=== PATIENT | male | born 1990 | race Caucasian/White ===

== ENCOUNTER → 2019-05-12 | Outpatient (CLI) | payer OTHER ==
--- NOTE | 2019-05-13 07:10 | REP ---
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 The patient reports swelling or tightness feeling around the base of the neck bilaterally rule out first cervical rib mass. TECHNIQUE: Sagittal and axial T1- and T2-weighted scans are acquired in the usual fashion with and without fat saturation. Sequences include spin echo, turbo spin-echo, and STIR imaging sequences. The field of view was opened up on axial sequences to include the area of the uppermost cervical ribs and lung apices and supraclavicular soft tissues. MRI FINDINGS: There is straightening of the normal cervical lordosis. Cortical and medullary bone signal intensity are normal. Cervical cord is normal in coarse, caliber and signal intensity on T1- and T2-weighted scans. No disc protrusion or other cord compressive lesion is seen. Disc spaces are preserved in height and signal intensity. There is no evidence of a soft tissue mass at the level of the thoracic inlet. No abnormal signal intensity is seen in or along the course the first several cervical ribs. No brachial plexus mass is appreciated. No thyroid lesion or submandibular gland lesion is seen. No cervical adenopathy is appreciated. Parotid glands appear normal and symmetric although they are not completely included in the field of view. The retropharyngeal soft tissues are unremarkable. IMPRESSION: Straightening of the normal cervical lordosis. Otherwise negative cervical spine MRI. The field of view was enlarged on the axial images and no evidence of brachial plexus supraclavicular or upper thoracic rib lesion is appreciated. Electronically Signed by Vidal Baker MD 05/13/2019 08:16 A
== END ==
LOC: M RAD 17:43
PROVIDERS: ATTEND Physician Assistant
DX: M47.892 Other spondylosis, cervical region (principal)